=== PATIENT | female | born 1975 | race Asian ===

== ENCOUNTER 2024-02-18 21:17 | Emergency (ER) | payer BC, SELFPAY ==
[2024-02-18 21:20] VITALS: BP 153/82; PULSE 82; RESP 19; TEMP 36.8; O2SAT 98; BMI 29.9
[2024-02-18 23:52] VITALS: BP 139/85; PULSE 80; RESP 16; TEMP 36.4; O2SAT 96
--- NOTE | 2024-02-19 01:08 | ED.GENADULT ---
HPI - General Adult General Chief complaint: General Medical Stated complaint: L side facial swelling, abd discomfort Time Seen by Provider: 02/19/24 01:07 Source: patient Mode of arrival: ambulatory Limitations: no limitations History of Present Illness ED Provider: HPI narrative: Patient complaining of left facial swelling an hour ago now is getting better was without any pain no change in the skin color no dental pain no fever no chills during stay in the ER swelling has decreased now almost gone no history slivary gland stones in the past Related Data Allergies Allergy/AdvReac Type Severity Reaction Status Date / Time No Known Allergies Allergy Verified 02/18/24 21:23 Review of Systems Review of Systems: Yes all other systems are reviewed and are negative [facility] Social History Social History Advance Directives: No Advance Directives Information Provided: Yes Do you have a plan to hurt others: No Plan Physical Exam ED Vital Signs: Vital Signs - 24 hr 02/18/24 21:20 02/18/24 23:52 Temperature 98.3 F 97.6 F Pulse Rate 82 80 Respiratory Rate 19 16 Blood Pressure 153/82 H 139/85 Pulse Oximetry 98 96 Oxygen Delivery Method Room Air Room Air BMI result Body Mass Index 29.9 Appearance: Alert. Oriented X3. No acute distress. ENT: Pharynx normal. Oral Mucosa moist slight swelling of the left parotid gland no erythema no stone palpable in the duct tympanic membrane intact Neck: Normal inspection. Neck supple. CVS: Normal heart rate and rhythm. Pulses normal. Respiratory: No respiratory distress. Equal air entry bilateral, no wheezing/rales/rhonchi Skin: Skin warm and dry. Normal skin color. Normal skin turgor. Extremities: No lower extremity edema. Neuro: Oriented X 3. Medical Decision Making Medical Decision Making MDM Narrative: Patient with left parotid gland swelling which was transient not much discomfort no signs of inflammation likely patient has had thick secretions/protid gland stone which already passed Discharge Plan Discharge Clinical Impression: Parotid gland fullness Patient Disposition: Home, Self-Care Instructions: Parotid Duct Obstruction (ED) Additional Instructions: Likely you had minor obstruction of left protein gland dark which opened up and decrease the swelling Drink plenty of fluids follow with your PCP if any concerns Use sour drops if swelling happens again Interventions: ED Discharge Assessment Last Done: 02/19/24 01:54 Discharge Date/Time: 02/19/24 01:56 Print Language: Danish
[2024-02-19 01:54] VITALS: BP 139/85; PULSE 80; RESP 16; TEMP 36.4; O2SAT 96
== END 2024-02-19 01:56 | disposition home or self-care (01) ==
LOC: HO.ED 02-19 01:45
PROVIDERS: Emergency Provider Internal Medicine
DX: K11.1 Hypertrophy of salivary gland (principal)
CPT/HCPCS: 99283